=== PATIENT | female | born 1995 | race Caucasian/White ===

== ENCOUNTER 2024-02-13 22:01 | Emergency (ER) | payer MEDICAID, SELFPAY ==
[2024-02-13 22:03] VITALS: BP 130/89; PULSE 103; RESP 16; TEMP 36.7; O2SAT 98; BMI 32.5
[2024-02-13] MEDS: Oxycodone/Apap 5/325 Tablet PO (23:11)
--- NOTE | 2024-02-13 23:11 | RAD_ITS ---
EXAM: XR RIGHT WRIST COMPLETE, 3 OR MORE VIEWS CLINICAL INDICATION: pain TECHNIQUE: Frontal, lateral and oblique views of the right wrist. COMPARISON: No relevant prior studies available. FINDINGS: BONES/JOINTS: Surgical fixation of the scaphoid with 2 pins. Findings bony detail is obscured by cast material. No acute fracture. No subluxation. Normal alignment. Preservation of the joint space. No sclerotic or destructive changes observed. SOFT TISSUES: Unremarkable. No soft tissue swelling or gas. No radiopaque foreign body. RAD/Wrist min 3 Views IMPRESSION: Surgical fixation of the scaphoid with 2 pins. Electronically Signed: Percy Hirsch MD at 23:49 EDT ,
[2024-02-14 00:02] VITALS: BP 126/83; PULSE 79; RESP 16; O2SAT 98
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
[2024-02-14 00:19] VITALS: BP 127/63; PULSE 71; RESP 16; TEMP 36.4; O2SAT 99
== END 2024-02-14 00:21 | disposition home or self-care (01) ==
PROVIDERS: Emergency Provider Emergency Medicine; Visit Provider Emergency Medicine
DX: G89.18 Other acute postprocedural pain (principal); S62.001G Unspecified fracture of navicular [scaphoid] bone of right wrist, subsequent encounter for fracture with delayed healing; F17.210 Nicotine dependence, cigarettes, uncomplicated; E66.9 Obesity, unspecified; V89.2XXA Person injured in unspecified motor-vehicle accident, traffic, initial encounter
CPT/HCPCS: 73110; 99282

== ENCOUNTER → 2024-02-25 | Outpatient (CLI) | payer MEDICAID, SELFPAY ==
[2024-02-25 17:20] LABS: Absolute Lymphocyte Count 2.68 X10^3/uL (0.83-4.51); Absolute Neutrophil Count 7.5 X10^3/uL (2.0-7.7); Basophil# 0.07 X10^3/uL; Basophil% 0.6 % (0-1); Eosinophil# 0.21 X10^3/uL; Eosinophils% 1.9 % (0-5); Hematocrit 38.8 % (37-47); Hemoglobin 12.4 g/dL (12.0-15.0); Lymphocyte # 2.68 X10^3/ul (0.83-4.51); Lymphocyte % 23.6 % (19-41); Mean Corpuscular Hgb 24.5 pg (27.0-32.0); Mean Corpuscular Volume 76.7 fL (81-99); Mean Platelet Vol. 9.5 fl (6.2-12.0); Monocyte# 0.79 X10^3/uL; NRBC Flagged by Analyzer 0 % (0-5); Neutrophil # 7.53 X10^3/uL (2.7-7.7); Neutrophil % 66.4 % (47-70); Platelet Count 455 K/mm3 (150-450); RBC Distribution Width CV 14.8 % (11.6-14.6); RBC Distribution Width SD 40.6 fl (35.1-43.9); Red Blood Count 5.06 M/mm3 (4.2-5.4); White Blood Count 11.3 K/mm3 (4.4-11.0)
[2024-02-25 17:27] LABS: Vitamin B12 423 pg/mL (211-911); Vitamin D,25 Hydroxy 23.2 ng/mL
[2024-02-25 17:30] LABS: ALB/GLOB Ratio 0.8 RATIO (0.9-2.4); AST(SGOT) 38 U/L (15-37); Alanine Aminotransfer ALT/SGPT 49 U/L (13-56); Albumin, Serum 3.5 g/dL (3.2-5.0); Alkaline Phosphatase 93 U/L (45-117); Anion Gap 9 (5-15); BUN 12 mg/dL (7-18); BUN/Creat Ratio 17.4 RATIO (10-20); Calcium,Total 9.3 mg/dL (8.5-10.1); Chloride 103 mmol/L (98-107); Creatinine, Serum 0.69 mg/dL (0.55-1.02); EST Glomerular Filtration Rate 106 mL/min (>60); Est Glom Filt Rate - Afr Amer 129 mL/min (>60); Globulin 4.2 g/dL (2.2-4.2); Glucose 84 mg/dL (74-106); Iron 86 ug/dL (50-170); Iron Binding Capacity,Total 323 ug/dL (250-450); Magnesium 1.9 mg/dL (1.6-2.6); PERCENT IRON SATURATION 26.6 % (15.0-55.0); Protein, Total 7.7 g/dL (6.4-8.2); Sodium Level 136 mmol/L (136-145); Thyroid Stim Hormone (TSH) 0.97 uIU/mL (0.358-3.74)
== END | disposition home or self-care (01) ==
LOC: LABSPEC 14:52
PROVIDERS: Visit Provider Nurse Practitioner Family
DX: E56.9 Vitamin deficiency, unspecified (principal); I10 Essential (primary) hypertension; G25.81 Restless legs syndrome
CPT/HCPCS: 36415; 80053; 82306; 82607; 83540; 83550; 83735; 84443; 85025